=== PATIENT | female | born 1965 ===

== ENCOUNTER 2024-03-29 08:07 | Emergency (ER) | payer MEDICARE, MEDICAID, SELFPAY ==
[2024-03-29 08:12] VITALS: BP 102/68; PULSE 96; RESP 20; TEMP 36; O2SAT 94; BMI 26.5
--- NOTE | 2024-03-29 08:29 | ED.NURSE ---
[employer]one Maker completed triage for patient and assisted her via wheelchair into ED exam rm 1. Patient is able to transfer from wheelchair to cot with minimal assist. Paper Cone Maker provided warm blanket to abdomen for comfort as patient reports she had been taking warm baths to help the pain. Paper Cone Maker returned to nurses station to attempt medication reconciliation (via [employer], patient unable to recall all meds/doses) when patient's came to nurses station and reported they wanted to leave. Paper Cone Maker spoke with patient and her and they reported thinking that [place] [facility] was in the [facility] system and we would have all her previous care records with GI/primary care. Explained that we are city-owned (not [facility]) but still able to evaluate/treat patient today. Explained that often we can access records online or request records to stay up to date. Patient and report concerns about insurance and cost and again request to leave. Paper Cone Maker asked patient if she would like me to bring the MD in for confirmation that he could evaluate/treat today even without record access. Patient declines and states she would like to keep her care in the [facility] system. Refusal of treatment signed, patient assisted to private vehicle via wheelchair, providing ride. Patient and informed they can return at any time for evaluation.
--- NOTE | 2024-03-29 08:42 | W.ED.CHARTNO ---
ED Chart Note Chart Note Details Date: 03/29/24 Details: Patient left without being seen by provider
== END 2024-03-29 08:40 | disposition left against medical advice (07) ==
PROVIDERS: Emergency Provider Student in an Organized Health Care Education/Training Program
DX: Z53.21 Procedure and treatment not carried out due to patient leaving prior to being seen by health care provider (principal)